=== PATIENT | female | born 1940 ===

== ENCOUNTER 2021-06-22 16:44 | Inpatient (IN) | payer MEDICARE ==
[2021-06-22 18:08] LABS: #Eosinphils 0.3 thou/uL (0.0-0.7); #Lymphocytes 1.3 thou/uL (1.20-3.40); #Monocytes 1.1 thou/uL (0.11-0.59); #Neutrophils 7.3 thou/uL (1.40-6.50); %Basophils 0.1 % (0.0-1.0); %Eosinophils 3.3 % (0.0-10.0); %Lymphocytes 13.1 % (21.0-51.0); %Monocytes 11.1 % (0.0-10.0); %Neutrophils 72.3 % (42.0-75.0); Mean Corpuscular HGB CONC 33.4 g/dL (32.0-36.0); Mean Corpuscular Hemoglobin 30.2 pg (27.0-31.0); Mean Corpuscular Volume 90.4 fL (78.0-98.0); Platelet Count 280 thou/uL (130-400); RBC Distribution Width 11.6 % (11.5-14.5); Red Blood Cell (RBC) Count 3.65 mill/uL (4.20-5.40); White Blood Cell (WBC) Count 10.1 thou/uL (4.8-10.8)
[2021-06-22 18:32] LABS: ALT (SGPT) 17 U/L (8-55); AST (SGOT) 16 U/L (5-34); Albumin 3.9 g/dL (3.4-4.8); Alkaline Phosphatase 67 U/L (40-110); Anion Gap 17 mmol/L (10-20); BUN (Urea Nitrogen) 52 mg/dL (9.8-20.1); Bilirubin, Total 0.7 mg/dL (0.2-1.2); Calc. Creatinine Clearance 0 mL/min (70-130); Calcium 9.3 mg/dL (7.8-10.44); Carbon Dioxide 22 mmol/L (23-31); Chloride 99 mmol/L (98-107); Globulin 3.9 g/dL (2.4-3.5); Glucose 79 mg/dL (83-110); Potassium 4.2 mmol/L (3.5-5.1); Protein, Total 7.8 g/dL (5.8-8.1); Sodium 134 mmol/L (136-145)
[2021-06-22 22:17] LABS: Bacteria/HPF 4+ HPF (None Seen); Bilirubin Negative (Negative); Blood, Urine 1+ (Negative); Clarity Extra Turbid (Clear); Glucose, Urine (Dipstick) Normal (Negative); Ketone, Urine Negative (Negative); Leukocyte 500 Leu/uL (Negative); Nitrite Negative (Negative); Protein, Urine (Dipstick) 200 mg/dL (Neg-Trace); Specific Gravity, Urine 1.014 (1.002-1.036); Squamous Epithelial 0-3 HPF (0-3); Urobilinogen Normal mg/dL (Less than 2); WBC/HPF Greater than 50 HPF (0-3)
[2021-06-22] MEDS ORDERED: cefTRIAXone\\ROCEPHIN 1 GM VIAL ONE (22:38)
[2021-06-22] MEDS ORDERED: diphenhydrAMINE 50 MG/ML VIAL ONE (23:05)
[2021-06-22] MEDS ORDERED: Vancomycin 1 GM/200 ML BAG ONE (23:06)
[2021-06-23 01:45] VITALS: BMI 30.4
[2021-06-23] MEDS ORDERED: Sodium Chloride 0.9% 1,000 ML IV SCH (02:15)
[2021-06-23] MEDS ORDERED: Dextrose 5% in Water 1,000 ML IV PRN (03:15)
[2021-06-23] MEDS ORDERED: Dextrose 50% Abboject 50 ML SYRINGE SLOW IVP PRN (03:15)
[2021-06-23] MEDS ORDERED: HumaLOG 300 UNITS/3 ML VIAL SC PRN (03:15)
[2021-06-23] MEDS: HumaLOG 300 UNITS/3 ML VIAL SC PRN ×3 (05:35→17:02)
[2021-06-23] MEDS ORDERED: Ondansetron ODT 4 MG TAB PO PRN (10:10)
[2021-06-23] MEDS ORDERED: Electrolyte Replacement Protocol 1 EACH FS SCH (10:15)
[2021-06-23 11:41] LABS: Albumin 3.1 g/dL (3.4-4.8); Anion Gap 13 mmol/L (10-20); BUN (Urea Nitrogen) 45 mg/dL (9.8-20.1); BUN/Creatinine Ratio 25.14; Calc. Creatinine Clearance 30 mL/min (70-130); Calcium 8.3 mg/dL (7.8-10.44); Carbon Dioxide 21 mmol/L (23-31); Chloride 106 mmol/L (98-107); Glucose 192 mg/dL (83-110); Phosphorus 2.6 mg/dL (2.3-4.7); Sodium 136 mmol/L (136-145)
[2021-06-23 11:51] LABS: SARS-CoV-2 PCR by NAA Not Detected (NotDetected)
[2021-06-23 14:00] LABS: Creatinine, Urine 47.34 mg/dL (47-110)
[2021-06-23] MEDS: Heparin 5,000 UNITS/ML VIAL SC SCH ×2 (15:27→21:07)
[2021-06-23] MEDS: Lactated Ringer's 1,000 ML IV SCH (21:06)
[2021-06-23] MEDS: Cefepime 1 GM in Sodium Chloride 0.9% 100 ML IVPB SCH (21:07)
[2021-06-23] MEDS: Acetaminophen 325 MG TAB PO PRN (21:19)
[2021-06-23 23:25] LABS: Vancomycin, Trough 8.3 ug/mL
[2021-06-23] MEDS ORDERED: Vancomycin 1 GM in Premix Bag 1 BAG IVPB SCH (23:45)
[2021-06-24] MEDS: Levothyroxine Sodium 25 MCG TAB PO SCH (05:40)
[2021-06-24] MEDS: HumaLOG 300 UNITS/3 ML VIAL SC PRN ×3 (05:45→18:07)
[2021-06-24 06:55] LABS: #Basophils 0.1 thou/uL (0.0-0.2); #Eosinphils 0.3 thou/uL (0.0-0.7); #Lymphocytes 0.8 thou/uL (1.20-3.40); #Monocytes 0.7 thou/uL (0.11-0.59); #Neutrophils 4.7 thou/uL (1.40-6.50); %Basophils 0.9 % (0.0-1.0); %Neutrophils 71.1 % (42.0-75.0); Hemoglobin 9.6 g/dL (12.0-16.0); Mean Corpuscular HGB CONC 33.4 g/dL (32.0-36.0); Mean Platelet Volume 6.7 fL (7.4-10.4); Platelet Count 270 thou/uL (130-400); RBC Distribution Width 11.4 % (11.5-14.5); White Blood Cell (WBC) Count 6.7 thou/uL (4.8-10.8)
[2021-06-24 07:25] LABS: Anion Gap 14 mmol/L (10-20); BUN (Urea Nitrogen) 26 mg/dL (9.8-20.1); Calc. Creatinine Clearance 46 mL/min (70-130); Calcium 8.9 mg/dL (7.8-10.44); Carbon Dioxide 22 mmol/L (23-31); Glucose 162 mg/dL (83-110); Potassium 3.4 mmol/L (3.5-5.1)
[2021-06-24 08:04] LABS: Chloride 105 mmol/L (98-107); Sodium 138 mmol/L (136-145)
[2021-06-24] MEDS ORDERED: Potassium Bicarbonate/Cit Ac 20 MEQ TAB PO SCH (08:30)
[2021-06-24] MEDS ORDERED: Non-Formulary Item 1 EACH (Levothyroxine Sodium [Levothyroxine] 25 MCG Capsule) PO SCH (09:00)
[2021-06-24] MEDS ORDERED: Non-Formulary Item 1 EACH (Omeprazole [Omeprazole] 20 MG Tablet.Dr) PO SCH (09:00)
[2021-06-24] MEDS: Cefepime 1 GM in Sodium Chloride 0.9% 100 ML IVPB SCH ×2 (09:10→20:49)
[2021-06-24] MEDS: Aspirin 81 mg Enteric Coated Tablet PO SCH (09:11)
[2021-06-24] MEDS: Escitalopram Oxalate 10 mg Tablet PO SCH (09:11)
[2021-06-24] MEDS: Amlodipine 10 MG TAB PO SCH (09:11)
[2021-06-24] MEDS: Heparin 5,000 UNITS/ML VIAL SC SCH ×3 (09:12→20:50)
[2021-06-24] MEDS: Lactated Ringer's 1,000 ML IV SCH ×3 (09:14→20:49)
[2021-06-24] MEDS ORDERED: Potassium Chloride 20 MEQ TAB PO SCH (10:00)
[2021-06-24 11:08] LABS: Magnesium 1.2 mg/dL (1.6-2.6)
[2021-06-24] MEDS ORDERED: Magnesium 2 GM/50 ML 2 GM in Premix Bag 1 BAG IVPB SCH (11:15)
[2021-06-24] MEDS ORDERED: Cepastat Lozenges 1 LOZ PO PRN (11:16)
[2021-06-24] MEDS ORDERED: Hydrocerin (Eucerin) Cream 120 gm Jar TOP PRN (11:16)
[2021-06-24] MEDS ORDERED: Zolpidem Tartrate 5 MG TAB PO PRN (11:16)
[2021-06-24] MEDS ORDERED: Calcium Carbonate 500 MG ChewTAB PO PRN (11:16)
[2021-06-24] MEDS ORDERED: HYDROcodone/Acetaminophen 5/325 mg Tablet PO PRN (11:16)
[2021-06-24] MEDS ORDERED: Loperamide HCl 2 MG CAP PO PRN (11:16)
[2021-06-24] MEDS ORDERED: hydrALAZINE 20 MG/ML VIAL SLOW IVP PRN (11:16)
[2021-06-24] MEDS ORDERED: GUAIFENESIN SF SOLN 200 MG/10 ML UDCUP PO PRN (11:16)
[2021-06-24] MEDS ORDERED: Ondansetron PF 4 MG/2 ML Vial IVP PRN (11:16)
[2021-06-24] MEDS ORDERED: Senokot S 8.6-50 MG TAB PO PRN (11:16)
[2021-06-24] MEDS ORDERED: Loratadine 10 MG TAB PO PRN (11:16)
[2021-06-24] MEDS: Acetaminophen 325 MG TAB PO PRN (20:50)
[2021-06-24 23:38] LABS: Vancomycin, Random 12.1 ug/mL (See Comment)
[2021-06-25] MEDS ORDERED: Vancomycin HCl 750 MG in Sodium Chloride 0.9% 250 ML 250 ML IVPB SCH (02:00)
[2021-06-25] MEDS: Levothyroxine Sodium 25 MCG TAB PO SCH (05:14)
[2021-06-25 06:38] LABS: #Eosinphils 0.5 thou/uL (0.0-0.7); #Lymphocytes 1.2 thou/uL (1.20-3.40); #Monocytes 0.7 thou/uL (0.11-0.59); #Neutrophils 4.9 thou/uL (1.40-6.50); %Basophils 0.3 % (0.0-1.0); %Eosinophils 6.5 % (0.0-10.0); %Lymphocytes 16.7 % (21.0-51.0); %Monocytes 9.6 % (0.0-10.0); %Neutrophils 66.8 % (42.0-75.0); Hemoglobin 9.3 g/dL (12.0-16.0); Mean Corpuscular HGB CONC 33.5 g/dL (32.0-36.0); Mean Corpuscular Hemoglobin 30.1 pg (27.0-31.0); Mean Corpuscular Volume 89.9 fL (78.0-98.0); Mean Platelet Volume 6.9 fL (7.4-10.4); Platelet Count 277 thou/uL (130-400); RBC Distribution Width 11.3 % (11.5-14.5); Red Blood Cell (RBC) Count 3.08 mill/uL (4.20-5.40); White Blood Cell (WBC) Count 7.3 thou/uL (4.8-10.8)
[2021-06-25 07:57] LABS: Chloride 104 mmol/L (98-107); Potassium 3.9 mmol/L (3.5-5.1); Sodium 138 mmol/L (136-145)
[2021-06-25 07:58] LABS: Glucose 170 mg/dL (83-110)
[2021-06-25 07:59] LABS: Anion Gap 12 mmol/L (10-20); Carbon Dioxide 26 mmol/L (23-31)
[2021-06-25 08:02] LABS: BUN (Urea Nitrogen) 17 mg/dL (9.8-20.1); Calc. Creatinine Clearance 49 mL/min (70-130)
[2021-06-25 08:03] LABS: Magnesium 1.3 mg/dL (1.6-2.6)
[2021-06-25 08:04] LABS: Iron 30 ug/dL (50-170); Iron Binding Capacity, Total 249 mcg/dL (265-497)
[2021-06-25] MEDS ORDERED: Iron Sucrose Complex 200 MG in Sodium Chloride 0.9% 100 ML IVPB SCH (08:15)
[2021-06-25] MEDS ORDERED: Magnesium Sulfate 4 GM in Sodium Chloride 0.9% 250 ML 250 ML IVPB SCH (08:15)
[2021-06-25] MEDS ORDERED: Iron, Sodium Ferric Gluconate 250 MG in Sodium Chloride 0.9% 250 ML 250 ML IVPB SCH ×2 (08:30→12:45)
[2021-06-25] MEDS: Magnesium Oxide 400 MG TAB PO SCH (09:03)
[2021-06-25] MEDS: Amlodipine 10 MG TAB PO SCH (09:04)
[2021-06-25] MEDS: Escitalopram Oxalate 10 mg Tablet PO SCH (09:04)
[2021-06-25] MEDS: Cefepime 1 GM in Sodium Chloride 0.9% 100 ML IVPB SCH ×2 (09:05→20:20)
[2021-06-25] MEDS: Aspirin 81 mg Enteric Coated Tablet PO SCH (10:05)
[2021-06-25] MEDS: Heparin 5,000 UNITS/ML VIAL SC SCH ×3 (10:05→20:20)
[2021-06-26 01:42] LABS: Vancomycin, Trough 11.2 ug/mL
[2021-06-26] MEDS: Levothyroxine Sodium 25 MCG TAB PO SCH (05:04)
[2021-06-26] MEDS: HumaLOG 300 UNITS/3 ML VIAL SC PRN ×2 (05:05→12:17)
[2021-06-26] MEDS ORDERED: Ferrous Sulfate 325 MG TAB PO SCH (08:00)
[2021-06-26 08:52] LABS: Hemoglobin 9.9 g/dL (12.0-16.0)
[2021-06-26] MEDS ORDERED: Pioglitazone HCl 15 MG TAB PO SCH (09:00)
[2021-06-26] MEDS ORDERED: Metoprolol Tartrate 50 MG TAB PO SCH (09:00)
[2021-06-26] MEDS ORDERED: Cholecalciferol 1,000 UNITS (25 MCG) TAB PO SCH (09:00)
[2021-06-26] MEDS ORDERED: Gabapentin 300 MG CAP PO SCH (09:00)
[2021-06-26 09:09] LABS: Anion Gap 14 mmol/L (10-20); BUN (Urea Nitrogen) 14 mg/dL (9.8-20.1); Calc. Creatinine Clearance 48 mL/min (70-130); Calcium 9.3 mg/dL (7.8-10.44); Carbon Dioxide 25 mmol/L (23-31); Chloride 102 mmol/L (98-107); Glucose 136 mg/dL (83-110); Sodium 137 mmol/L (136-145)
[2021-06-26] MEDS: Aspirin 81 mg Enteric Coated Tablet PO SCH (09:15)
[2021-06-26] MEDS: Amlodipine 10 MG TAB PO SCH (09:15)
[2021-06-26] MEDS: Escitalopram Oxalate 10 mg Tablet PO SCH (09:15)
[2021-06-26] MEDS: Magnesium Oxide 400 MG TAB PO SCH (09:16)
[2021-06-26] MEDS: Heparin 5,000 UNITS/ML VIAL SC SCH ×2 (09:16→15:28)
[2021-06-26] MEDS ORDERED: Cefdinir 300 MG CAP PO SCH (11:00)
[2021-06-26 12:55] VITALS: TEMP 97.8
[2021-06-26 13:00] VITALS: BP 153/78
[2021-06-26] MEDS ORDERED: Amitriptyline HCl 25 MG TAB PO SCH (21:00)
== END 2021-06-26 15:31 | DRG 682 ==
LOC: ERS 16:44 → T4-A 23:26 → OBSVTOIN 06-24 09:57
PROVIDERS: ADMIT Internal Medicine; ATTEND Internal Medicine
DX: N17.9 Acute kidney failure, unspecified (principal); G93.41 Metabolic encephalopathy; N30.00 Acute cystitis without hematuria; E87.1 Hypo-osmolality and hyponatremia; E87.2 Acidosis; Z20.822 Contact with and (suspected) exposure to COVID-19; F32.A Depression, unspecified; I12.9 Hypertensive chronic kidney disease with stage 1 through stage 4 chronic kidney disease, or unspecified chronic kidney disease; N18.30 Chronic kidney disease, stage 3 unspecified; E83.42 Hypomagnesemia; F41.9 Anxiety disorder, unspecified; D50.9 Iron deficiency anemia, unspecified; E87.6 Hypokalemia; D63.1 Anemia in chronic kidney disease; E03.9 Hypothyroidism, unspecified; E66.9 Obesity, unspecified; Z79.82 Long term (current) use of aspirin; Z79.890 Hormone replacement therapy; Z79.899 Other long term (current) drug therapy; Z79.84 Long term (current) use of oral hypoglycemic drugs; Z68.30 Body mass index [BMI] 30.0-30.9, adult
CPT/HCPCS: 36415; 36416; 80048; 80053; 80069; 80202; 81003; 81015; 82570; 82728; 83540; 83550; 83605; 83735; 84156; 84300; 84540; 85014; 85018; 85025; 87040; 87077; 87086; 87186; 93005; 93010; 96375; 96376; G0378; J0692; J0696; J1200; J1644; J1815; J2916; J3370; J3475; J3490; J7050; J7120; U0003; U0005